=== PATIENT | female | born 1945 | race Caucasian/White ===

== ENCOUNTER 2019-06-17 07:41 | Outpatient (CLI) | payer MEDICARE, OTHER ==
[~2019-06-17] VITALS: Ht 167.6 cm; Wt 92.7 kg
[2019-06-17 08:05] LABS: BASOPHILS 0.4 % (0-2); EOSINOPHILS 2.2 % (0-7); HEMATOCRIT 38.3 % (36.0-48.0); IMMATURE GRANULOCYTES 0.2 % (0-5); LYMPHOCYTES 18.9 % (15-50); MCH 32.6 pg (26.0-34.0); MCHC 33.9 g/dL (31.0-37.0); MEAN PLATELET VOLUME 9.2 fL (7.4-10.4); MONOCYTES 12.4 % (2-11); NEUTROPHILS 65.9 % (40-80); PLATELET COUNT 203 10x3/uL (130-400); RBC 3.99 10x6/uL (4.00-5.40); RDW 13.2 % (11.5-14.5); WBC 8.1 10x3/uL (4.8-10.8)
[2019-06-17 08:10] LABS: CALCIUM 9.4 mg/dL (8.5-10.1); CARBON DIOXIDE 33.4 mmol/L (21.0-32.0); CREATININE - SERUM 1.4 mg/dL (0.6-1.3); POTASSIUM - SERUM 4.4 mmol/L (3.5-5.1)
[2019-06-17 08:11] LABS: APTT 29.3 SECONDS (22.8-39.4); INR 1.04 (0.85-1.17); PROTIME 13.1 SECONDS (11.6-15.0)
[2019-06-17] MEDS ORDERED: CYMBALTA30 MG PO (08:49)
[2019-06-17] MEDS ORDERED: VITAMIN C WIT1000 MG PO (08:49)
[2019-06-17] MEDS ORDERED: CARAFATE1 G PO (08:50)
[2019-06-17] MEDS ORDERED: TOPROL XL100 MG PO (08:50)
[2019-06-17] MEDS ORDERED: HYDROCHLOROTH12.5 M1 PO (08:50)
[2019-06-17] MEDS ORDERED: ELIQUIS5 MG PO (08:50)
[2019-06-17] MEDS ORDERED: PROTONIX40 MG PO (08:51)
[2019-06-17] MEDS ORDERED: BUTALB-APAP-CA1 EACH PO (08:52)
[2019-06-17] MEDS ORDERED: ALBUTEROL SULF8.5 GM INH (08:53)
[2019-06-17] MEDS ORDERED: TRAZODONE HCL150 MG PO (08:54)
[2019-06-17] MEDS ORDERED: LIPITOR40 MG PO (08:54)
[2019-06-17] MEDS ORDERED: CYCLOBENZAPRINE10 MG PO (08:54)
[2019-06-17] MEDS ORDERED: BENICAR40 MG PO (08:54)
[2019-06-17] MEDS ORDERED: ROCALTROL0.25 MCG PO (08:55)
[2019-06-17] MEDS ORDERED: AMBIEN5 MG PO (08:55)
[2019-06-17] MEDS ORDERED: ZYLOPRIM300 MG PO (08:55)
[2019-06-17 09:06] VITALS: BP 109/45; Ht 167.6 cm; Wt 92.7 kg
--- NOTE | 2019-06-17 15:02 | NUR ---
1130 FREQUENT VS DONE. 1200 RECIEVED A FINGER FOOD TRAY 1330 VOIDED ON BEDPAN 1500 IV REMOVED AND PRESSURE HELD
== END 2019-06-17 15:27 | disposition home or self-care (01) ==
LOC: D.SP 07:41 → D.CT 11:00 → D.SP 11:00
PROVIDERS: Specialist; ATTEND Nurse Practitioner Family
DX: R16.0 Hepatomegaly, not elsewhere classified (principal)